=== PATIENT | male | born 1945 | race Hispanic/Latino ===

== ENCOUNTER 2021-06-20 10:17 | Day surgery (SDC) | payer OTHER ==
[2021-06-17 13:45] LABS: EOSINOPHILS % (AUTO) 3.5 % (0.0-8.0); HEMATOCRIT 43.4 % (42-54); LYMPHOCYTES % (AUTO) 32.7 % (21.0-51.0); MEAN CORPUSCULAR HEMOGLOBIN 30.3 pg (27.0-33.0); MEAN CORPUSCULAR HGB CONC 32.7 g/dL (32.0-36.0); MEAN CORPUSCULAR VOLUME 92.7 fL (79-99); MONOCYTES % (AUTO) 5.5 % (3.0-13.0); NEUTROPHILS % (AUTO) 57.2 % (40.0-77.0); PLATELET COUNT (AUTO) 232 K/uL (130-400); RED BLOOD CELL COUNT(AUTO) 4.68 MIL/uL (4.50-6.20); RED CELL DISTRIBUTION WIDTH 13.5 % (11.0-15.5); WHITE BLOOD COUNT (AUTO) 8.3 K/uL (4.8-10.8)
[2021-06-17 13:46] LABS: APPEARANCE,URINE Clear (CLEAR); BILIRUBIN,URINE Negative (NEGATIVE); COLOR,URINE Yellow (YELLOW); GLUCOSE, URINE (UA) >=1000 mg/dL (NEGATIVE); KETONES,URINE Negative (NEGATIVE); LEUKOCYTE ESTERASE ,URINE Negative (NEGATIVE); NITRATE,URINE Negative (NEGATIVE); OCCULT BLOOD,URINE Negative (NEGATIVE); PH,URINE 6.5 (5.0-8.0); PROTEIN,URINE Negative (NEGATIVE)
[2021-06-17 13:54] LABS: CREATININE 0.9 mg/dL (0.5-1.5); POTASSIUM 4.3 mmol/L (3.5-5.1)
[2021-06-17 13:55] LABS: BACTERIA,URINE Rare /HPF (None Seen); RBC,URINE 0-1 /HPF (0-1); SQUAMOUS EPITHELIAL CELL,UR Rare /HPF (0-2); WBC,URINE 0-1 /HPF (0-1)
[2021-06-17 13:56] LABS: PROTHROMBIN TIME 10.9 SEC (9.6-11.6)
[2021-06-17 13:58] LABS: PARTIAL THROMBOPLASTIN TIME 29.4 SEC (26.3-35.5)
[2021-06-17 14:41] VITALS: BP 141/70
[~2021-06-20] VITALS: Ht 162.6 cm; Wt 80.2 kg
[2021-06-20] VITALS (8 sets, daily range): BP systolic 114–126; BP diastolic 57–71
[2021-06-20] MEDS ORDERED: PIOG15TA66 PO (12:24)
[2021-06-20] MEDS ORDERED: EMPA10TA PO (12:24)
[2021-06-20] MEDS ORDERED: METO25TA6 PO (12:24)
[2021-06-20] MEDS ORDERED: AEC81 PO (12:24)
[2021-06-20] MEDS ORDERED: ICOS1CAP PO (12:24)
[2021-06-20] MEDS ORDERED: LISI10TA24 PO (12:24)
[2021-06-20] MEDS ORDERED: TAMS-1 PO (12:24)
[2021-06-20] MEDS ORDERED: SITA1TBM7 PO (12:24)
[2021-06-20] MEDS ORDERED: LEVO25CA4 PO (12:24)
[2021-06-20] MEDS ORDERED: ROSU20TA31 PO (12:24)
[2021-06-20] MEDS ORDERED: 0.9%NACL 1000ML 1,000 ML IV ONE (12:26)
[2021-06-20] MEDS ORDERED: LIDOCAINE HCL 400MG/20ML VIAL ONE (14:19)
[2021-06-20] MEDS ORDERED: IOHEXOL-350 50ML VIAL IV ONE (14:19)
[2021-06-20] MEDS ORDERED: IOHEXOL-350 75 ML VIAL IV ONE (14:19)
[2021-06-20] MEDS ORDERED: NITROGLYCERIN 50MG VIAL ONE (14:19)
[2021-06-20] MEDS ORDERED: MIDAZOLAM HCL 1 MG/ML 2ML VIAL ONE (14:47)
[2021-06-20] MEDS ORDERED: FENTANYL CITRATE PF 50 MCG/1 ML 2ML VIAL ONE (14:48)
[2021-06-20] MEDS ORDERED: DEXTROSE 50%-WATER 50 ML DISP.SYRIN IV PRN (15:30)
[2021-06-20] MEDS ORDERED: 0.9%NACL 10ML VIAL IVP SCH (15:30)
[2021-06-20] MEDS ORDERED: INSULIN HUMULIN R 100 UNIT/ML 3ML SQ SCH (16:30)
== END 2021-06-20 18:27 | disposition home or self-care (01) ==
LOC: DAH 10:17
PROVIDERS: ATTEND Internal Medicine Cardiovascular Disease
DX: I25.119 Atherosclerotic heart disease of native coronary artery with unspecified angina pectoris (principal); I42.8 Other cardiomyopathies; E11.9 Type 2 diabetes mellitus without complications; I10 Essential (primary) hypertension; E78.5 Hyperlipidemia, unspecified; Z79.82 Long term (current) use of aspirin; Z79.890 Hormone replacement therapy; Z79.899 Other long term (current) drug therapy; Z98.890 Other specified postprocedural states
CPT/HCPCS: 36415; 71045; 80048; 81001; 82948 ×2; 85025; 85610; 85730; 93005 ×2; 93458; A4215; A4216; A4221; A4222; A4223 ×3; A4606; A4663; C1760; C1894; J1644; J2250; J3010; J3490 ×2; J7030; Q9967; 99156; 99157